=== PATIENT | male | born 1960 | race Caucasian/White ===

== ENCOUNTER 2017-05-16 09:01 | Emergency (ER) | payer MEDICAID ==
[~2017-05-16] VITALS: Ht 182.9 cm; Wt 75.0 kg
[2017-05-16] MEDS ORDERED: DOXY-200 PO (09:39)
[2017-05-16] MEDS ORDERED: ALBU18HF2 INH (09:39)
[2017-05-16] MEDS ORDERED: BENZ-16 PO (09:39)
[2017-05-16 10:24] VITALS: BP 122/94
== END 2017-05-16 10:00 | disposition home or self-care (01) ==
LOC: ER 09:02
DX: J21.9 Acute bronchiolitis, unspecified (principal); F17.200 Nicotine dependence, unspecified, uncomplicated; Z79.899 Other long term (current) drug therapy
CPT/HCPCS: 99283